=== PATIENT | male | born 1960 | race African-American/Black ===

== ENCOUNTER 2020-07-13 05:32 | Emergency (ER) | payer MEDICAID ==
[~2020-07-13] VITALS: Ht 175.3 cm; Wt 73.0 kg
[2020-07-13 06:12] VITALS: BP 176/99
[2020-07-13] MEDS ORDERED: ACETAMINOPHEN 325MG TABLET PO ONE (06:15)
[2020-07-13] MEDS ORDERED: IBUPROFEN 400MG TABLET PO ONE (06:15)
== END 2020-07-13 07:55 | disposition home or self-care (01) ==
LOC: ER 05:51
DX: M25.562 Pain in left knee (principal); F17.200 Nicotine dependence, unspecified, uncomplicated
CPT/HCPCS: 73562; 99283

== ENCOUNTER 2021-04-12 23:04 | Inpatient (IN) | payer MEDICAID, OTHER ==
[~2021-04-12] VITALS: Ht 175.3 cm; Wt 74.8 kg
[2021-04-12] MEDS ORDERED: ONDANSETRON 4MG ODT PO STA (23:39)
[2021-04-12] MEDS ORDERED: VISCOUS LIDOCAINE 2% 15 ML UDC PO STA (23:39)
[2021-04-12] MEDS ORDERED: MAGNESIUM/ALUMINUM HYDROXIDE/SIMETHICONE 30ML UDC PO STA (23:39)
[2021-04-13 00:59] LABS: BASOPHILS % 0.4 % (0.0-2.0); EOSINOPHILS % 0.8 % (0.0-5.0); HEMATOCRIT. 45.4 % (42.0-52.0); HEMOGLOBIN. 15.4 g/dL (14.0-18.0); MEAN CORPUSCULAR HEMOGLOBIN 24.4 pg (28.0-32.0); MEAN CORPUSCULAR VOLUME 71.7 fL (80.0-94.0); MEAN PLATELET VOLUME 8.3 fl (7.4-10.4); NEUTROPHILS % 81.8 % (40.0-76.0); PLATELET 327 x1000/uL (130-400); RED BLOOD CELL COUNT 6.33 mill/uL (4.7-6.1); RED CELL DISTRIBUTION WIDTH 15.5 % (11.6-14.6)
[2021-04-13 01:01] LABS: CHLORIDE 99 mEq/L (98-107)
[2021-04-13 01:05] LABS: ETHANOL BLOOD < 10 mg/dL
[2021-04-13] MEDS ORDERED: SODIUM CHLORIDE 0.9% 1,000 ML IV NR (01:15)
[2021-04-13 01:45] LABS: PROTHROMBIN TIME 10.3 sec (9.6-11.0)
[2021-04-13] MEDS ORDERED: MORPHINE SULFATE 4 MG/ML CPJ (NOT FOR IM USE) IV NR (02:00)
[2021-04-13] MEDS ORDERED: SODIUM CHLORIDE 0.9% 1000ML BAG (SEPSIS BOLUS) IV NR (02:00)
[2021-04-13 02:11] LABS: CLARITY URINE CLEAR (CLEAR); COLOR URINE YELLOW (YELLOW); KETONES URINE 1+ (NEGATIVE); LEUKOCYTE ESTERASE URINE NEGATIVE (NEGATIVE); NITRITE URINE NEGATIVE (NEGATIVE); OCCULT BLOOD URINE 1+ (NEGATIVE); PROTEIN URINE 2+ (NEGATIVE); SPECIFIC GRAVITY URINE 1.023 (1.005-1.030); UROBILINOGEN URINE 0.2 E.U./dL (0.2-1.0)
[2021-04-13] MEDS: HYDRALAZINE 20MG/ML VIAL IV SCH ×3 (08:28→18:07)
[2021-04-13] MEDS ORDERED: ONDANSETRON HCL 4MG/2ML INJ IV PRN (08:45)
[2021-04-13] MEDS ORDERED: CLONIDINE 0.1MG TABLET PO PRN (08:45)
[2021-04-13] MEDS ORDERED: DIPHENHYDRAMINE 50MG/ML VIAL IV PRN (08:45)
[2021-04-13] MEDS ORDERED: NALOXONE HCL 0.4MG/ML VIAL IV PRN (08:45)
[2021-04-13] MEDS ORDERED: MORPHINE SULFATE 2 MG/ML CPJ (NOT FOR IM USE) IV PRN (08:45)
[2021-04-13] MEDS ORDERED: ACETAMINOPHEN 325MG TABLET PO PRN (08:45)
[2021-04-13] MEDS: SODIUM CHLORIDE 0.9% 1,000 ML IV SCH ×2 (09:45→21:30)
[2021-04-13] MEDS: AMLODIPINE 5MG TABLET PO SCH ×2 (09:45→21:30)
[2021-04-13] MEDS ORDERED: LORAZEPAM 2MG/ML CPJ IV PRN ×3 (14:15)
[2021-04-13] MEDS: MVI, ADULT NO.1 10 ML, FOLIC ACID 1 MG, THIAMINE HCL 100 MG in SODIUM CHLORIDE 0.9% 1,0... IV SCH (16:16)
[2021-04-13] MEDS: CHLORDIAZEPOXIDE 5 MG CAPSULE PO SCH (22:01)
[2021-04-14 01:09] VITALS: BP 156/86
[2021-04-14 01:10] VITALS: BP 156/86
[2021-04-14] MEDS: SODIUM CHLORIDE 0.9% 1,000 ML IV SCH (03:45)
[2021-04-14 04:00] VITALS: BP 150/96
[2021-04-14] MEDS: CHLORDIAZEPOXIDE 5 MG CAPSULE PO SCH ×2 (05:28→13:24)
[2021-04-14 06:02] LABS: CHLORIDE 104 mEq/L (98-107)
[2021-04-14 06:12] LABS: LDL CHOLESTEROL 120 mg/dL (5-100)
[2021-04-14 06:14] LABS: HDL CHOLESTEROL 71 mg/dL (40-59)
[2021-04-14 06:18] LABS: BASOPHILS % 0.4 % (0.0-2.0); EOSINOPHILS % 1.9 % (0.0-5.0); HEMATOCRIT. 38.3 % (42.0-52.0); HEMOGLOBIN. 12.9 g/dL (14.0-18.0); LYMPHOCYTES % 19.1 % (20.0-50.0); MEAN CORPUSCULAR HEMOGLOBIN 23.9 pg (28.0-32.0); MEAN CORPUSCULAR VOLUME 71.2 fL (80.0-94.0); MEAN PLATELET VOLUME 9.6 fl (7.4-10.4); MONOCYTES % 7.6 % (2.0-8.0); PLATELET 261 x1000/uL (130-400); RED BLOOD CELL COUNT 5.37 mill/uL (4.7-6.1); RED CELL DISTRIBUTION WIDTH 15.5 % (11.6-14.6)
[2021-04-14 08:00] VITALS: BP 133/85
[2021-04-14] MEDS ORDERED: PNEUMOCOCCAL 23-VAL P-SAC VAC 0.5 ML IM ONE (08:00)
[2021-04-14] MEDS ORDERED: PANTOPRAZOLE SODIUM 40 MG/VIAL IV SCH (09:00)
[2021-04-14] MEDS ORDERED: POTASSIUM CHLORIDE 20MEQ TABLET SR PO SCH (09:15)
[2021-04-14] MEDS: AMLODIPINE 5MG TABLET PO SCH (09:36)
[2021-04-14] MEDS: MVI, ADULT NO.1 10 ML, FOLIC ACID 1 MG, THIAMINE HCL 100 MG in SODIUM CHLORIDE 0.9% 1,0... IV SCH (09:36)
[2021-04-14 12:00] VITALS: BP 148/91
[2021-04-14] MEDS: HYDRALAZINE 20MG/ML VIAL IV SCH (13:24)
[2021-04-14 14:55] VITALS: BP 148/91
== END 2021-04-14 15:22 | disposition home or self-care (01) | DRG 282 ==
LOC: ER 23:04 → MICUSO 04-13 02:22 → 8WST 04-13 23:45
PROVIDERS: ADMIT Internal Medicine; ATTEND Internal Medicine
DX: K85.90 Acute pancreatitis without necrosis or infection, unspecified (principal); D50.9 Iron deficiency anemia, unspecified; M17.0 Bilateral primary osteoarthritis of knee; R74.01 Elevation of levels of liver transaminase levels; I10 Essential (primary) hypertension; Z20.822 Contact with and (suspected) exposure to COVID-19
CPT/HCPCS: 36415; 74178; 76700; 80053; 80061; 80076; 80320; 81003; 82140; 82728; 83540; 83550; 83615; 85025; 85044; 87426; 93005; 93970; 99285; C9113; J0360; J2270; J3411; J3490; J7030; Q0162; G0480

== ENCOUNTER 2022-10-13 13:50 | Emergency (ER) | payer MEDICAID, OTHER ==
[~2022-10-13] VITALS: Ht 175.3 cm; Wt 80.0 kg
[2022-10-13] MEDS ORDERED: ACET-2708 MT ×3 (23:45→23:59)
[2022-10-14] MEDS ORDERED: KETOROLAC 30MG/ML VIAL IM ONE
[2022-10-14 00:14] VITALS: BP 160/92
== END 2022-10-14 00:16 | disposition home or self-care (01) ==
LOC: ER 13:50
DX: M25.521 Pain in right elbow (principal)
CPT/HCPCS: 73080; 96372; 99283; J1885; A4565